=== PATIENT | male | born 1975 | race Two or more races ===

== ENCOUNTER 2018-05-05 22:01 | Emergency (ER) | payer MEDICAID ==
[~2018-05-05] VITALS: Ht 172.7 cm; Wt 125.2 kg
[2018-05-05 22:11] VITALS: BP 129/78
--- NOTE | 2018-05-05 22:40 | NUR ---
BIB FAMILY COMPLAINING OF SOB SINCE "9AM" TODAY TAKING NEWLY PRESCRIBED ANTIDEPRESSANT. PT AA/OX4 ANXIOUS. SPEAKING FULL SENTENCES. NO S/S OF SOB. LUNGS SOUNDS CLEAR ALLF FEILDS. SKIN PINK, WARM, DRY. SEMI FOWLERS POSITION WELL TOLERATED. AMBULATED TO BED WITH STABLE GAIT. NO COMPLAINTS OF PAIN. NO N/V. VSS. NAD. WILL CONTINUE TO MONITOR.
--- NOTE | 2018-05-05 23:06 | NUR ---
Patient discharged to home in stable condition. Written and verbal after care instructions given. Patient verbalizes understanding of instruction. AMBULATED WITH STEADY GAIT. JON. VSS.
== END 2018-05-05 23:08 | disposition home or self-care (01) ==
LOC: ER 22:06
DX: F41.9 Anxiety disorder, unspecified (principal); T43.215A Adverse effect of selective serotonin and norepinephrine reuptake inhibitors, initial encounter; I10 Essential (primary) hypertension; E66.9 Obesity, unspecified; Y92.89 Other specified places as the place of occurrence of the external cause
CPT/HCPCS: 99281; A4606; Z7610; Z7502

== ENCOUNTER 2018-05-08 19:30 | Emergency (ER) | payer MEDICAID ==
[~2018-05-08] VITALS: Ht 165.1 cm; Wt 124.3 kg
[2018-05-08 19:48] VITALS: BP 152/89
== END 2018-05-08 20:15 | disposition home or self-care (01) ==
LOC: ER 19:31
DX: R51 Headache (principal); I10 Essential (primary) hypertension; Z76.0 Encounter for issue of repeat prescription
CPT/HCPCS: 99283; A4606; Z7610

== ENCOUNTER 2018-07-03 18:10 | Emergency (ER) | payer MEDICAID ==
[~2018-07-03] VITALS: Ht 170.2 cm; Wt 119.7 kg
--- NOTE | 2018-07-03 19:04 | NUR ---
PATIENT AMBULATORY TO ER BED 1. BIBSELF C/O EPIGASTRIC PAIN W/ N/V SINCE 1000 HOURS. PT PLACED IN GOWN AND ON ACCELERATOR OPERATOR. VSS/RESP EVEN UNLABORED/NAD NOTED/SKIN WARM AND DRY/AFEBRILE/AOX4. AWAITNG MD CONWAY.
[2018-07-03] MEDS ORDERED: ONDANSETRON HCL/PF 4 MG/2 ML VIAL ONE (19:50)
--- NOTE | 2018-07-03 19:55 | NUR ---
18G IV TO R AC X 1 ATTEMPT USING ASEPTIC TECH, BLOOD HANDED OVER TO THE LAB AT BEDSIDE. IV FLUSHES EASILY WITH NS, NO S/S INFILTRATION NOTED AT THIS TIME.
[2018-07-03] MEDS: ONDANSETRON HCL/PF 4 MG/2 ML VIAL IVP ONE (20:00)
[2018-07-03 20:01] LABS: BASOPHILS # (AUTO) 0.1 /CMM (0.0-0.2); BASOPHILS % (AUTO) 0.7 % (0.0-2.0); EOSINOPHILS % (AUTO) 2.9 % (0.0-6.0); HEMATOCRIT 45 % (39-51); HEMOGLOBIN 14.9 g/dL (13.5-17.5); LYMPHOCYTES # (AUTO) 2.1 /CMM (0.8-4.8); LYMPHOCYTES % (AUTO) 22.4 % (20.0-44.0); MEAN CORPUSCULAR HGB CONC 33 g/dl (31.0-36.0); MEAN CORPUSCULAR VOLUME 86 fL (80-96); MONOCYTES # (AUTO) 0.6 /CMM (0.1-1.30); MONOCYTES % (AUTO) 6.9 % (2.0-12.0); NEUTROPHILS # (AUTO) 6.2 /CMM (1.8-8.9); NEUTROPHILS % (AUTO) 67.1 % (43.0-81.0); PLATELET COUNT (AUTO) 313 /CMM (150-450); RED BLOOD CELL COUNT(AUTO) 5.24 MIL/uL (4.5-6.0); WHITE BLOOD COUNT (AUTO) 9.3 K/uL (4.3-11.0)
[2018-07-03] MEDS: IV NS 0.9% 1,000 ML BAG IV ONE (20:01)
[2018-07-03 20:10] LABS: CALCIUM, SERUM 8.7 mg/dL (8.5-10.1); CREATININE 0.8 mg/dL (0.6-1.3); POTASSIUM 3.7 mmol/L (3.5-5.1)
[2018-07-03 20:15] LABS: ALBUMIN 3.5 g/dL (3.4-5.0); BILIRUBIN,DIRECT 0.2 mg/dL (0.0-0.2); BILIRUBIN,TOTAL 0.7 mg/dL (0.2-1.0); TOTAL PROTEIN, SERUM 7.3 g/dL (6.4-8.2)
[2018-07-03] MEDS ORDERED: LORAZEPAM 1 MG TABLET ONE (20:41)
[2018-07-03] MEDS: LORAZEPAM 1 MG TABLET PO ONE (20:45)
--- NOTE | 2018-07-03 21:50 | NUR ---
IV removed. Catheter intact and site benign. Pressure and 4x4 applied to site. No bleeding noted. Patient discharged to home in stable condition. Written and verbal after care instructions given. Patient verbalizes understanding of instruction. Patient ambulatory with a steady gait.
[2018-07-03 21:52] VITALS: BP 124/81
== END 2018-07-03 21:53 | disposition home or self-care (01) ==
LOC: ER 18:12
DX: R10.13 Epigastric pain (principal); R11.2 Nausea with vomiting, unspecified; F41.9 Anxiety disorder, unspecified
CPT/HCPCS: 36415; 80048-TC; 80076-TC; 83690-TC; 85025-TC; A4606; J2405; J7030; Z7610

== ENCOUNTER 2018-09-10 13:05 | Emergency (ER) | payer MEDICAID ==
[~2018-09-10] VITALS: Ht 160 cm; Wt 117.9 kg
--- NOTE | 2018-09-10 13:08 | NUR ---
BIB SELF 43 YEAR OLD MALE C/O EPIGASTRIC PAIN W/ N/VSINCE YESTERDAY WORST X 30 MINS. ALERT AND ORIENTED X4, BREATHING EVEN AND UNLABORED WITH NO DISTRESS NOTED. SKIN WARM TO TOUCH AND INTACT. AWAITING TO BE SEEN BY
[2018-09-10 13:59] LABS: BASOPHILS % (AUTO) 0.4 % (0.0-2.0); HEMATOCRIT 44 % (39-51); HEMOGLOBIN 14.8 g/dL (13.5-17.5); LYMPHOCYTES # (AUTO) 2.7 /CMM (0.8-4.8); LYMPHOCYTES % (AUTO) 27.5 % (20.0-44.0); MEAN CORPUSCULAR HGB CONC 34 g/dl (31.0-36.0); MEAN CORPUSCULAR VOLUME 88 fL (80-96); MONOCYTES # (AUTO) 0.8 /CMM (0.1-1.30); MONOCYTES % (AUTO) 7.6 % (2.0-12.0); NEUTROPHILS # (AUTO) 6.2 /CMM (1.8-8.9); NEUTROPHILS % (AUTO) 62.5 % (43.0-81.0); PLATELET COUNT (AUTO) 316 /CMM (150-450); RED BLOOD CELL COUNT(AUTO) 5.01 MIL/uL (4.5-6.0); WHITE BLOOD COUNT (AUTO) 9.9 K/uL (4.3-11.0)
[2018-09-10] MEDS ORDERED: ONDANSETRON HCL/PF 4 MG/2 ML VIAL ONE (13:59)
[2018-09-10] MEDS ORDERED: FAMOTIDINE/PF INJ 20 MG/2 ML VIAL IV ONE ×2 (13:59→14:00)
[2018-09-10] MEDS ORDERED: HYDROMORPHONE INJ 2 MG/ML DISP.SYRIN ONE (13:59)
[2018-09-10] MEDS ORDERED: PANTOPRAZOLE 40 MG VIAL ONE (13:59)
[2018-09-10] MEDS ORDERED: HYDROMORPHONE INJ 2 MG/ML DISP.SYRIN IV ONE (14:00)
[2018-09-10] MEDS ORDERED: IV NS 0.9% 1,000 ML BAG IV ONE (14:00)
[2018-09-10] MEDS ORDERED: PANTOPRAZOLE 40 MG VIAL IV ONE (14:00)
[2018-09-10] MEDS ORDERED: ONDANSETRON HCL/PF 4 MG/2 ML VIAL IVP ONE (14:00)
[2018-09-10 14:10] LABS: CALCIUM, SERUM 8.6 mg/dL (8.5-10.1); CREATININE 0.9 mg/dL (0.6-1.3); POTASSIUM 3.6 mmol/L (3.5-5.1)
[2018-09-10 14:16] LABS: ALBUMIN 3.4 g/dL (3.4-5.0); BILIRUBIN,DIRECT 0.4 mg/dL (0.0-0.2); TOTAL PROTEIN, SERUM 7.3 g/dL (6.4-8.2)
--- NOTE | 2018-09-10 15:57 | NUR ---
Patient discharged to home in stable condition. Written and verbal after care instructions given. Patient verbalizes understanding of instruction. IV removed. Catheter intact and site benign. Pressure and 4x4 applied to site. No bleeding noted.
[2018-09-10 15:59] VITALS: BP 118/88
== END 2018-09-10 16:00 | disposition home or self-care (01) ==
LOC: ER 13:07
DX: K29.70 Gastritis, unspecified, without bleeding (principal); F41.9 Anxiety disorder, unspecified
CPT/HCPCS: 36415; 80048; 80076; 83690; 85025; 85730; 96361; 96374; 96375; 99283; A4606; C9113; J1170; J2405; J3490; J7030; Z7610

== ENCOUNTER 2018-10-13 12:00 | Emergency (ER) | payer MEDICAID ==
--- NOTE | 2018-10-13 12:27 | NUR ---
FIRST CALL, PATIENT IS NOT IN THE WAITING ROOM.
--- NOTE | 2018-10-13 12:40 | NUR ---
2ND CALL, PATIENT IS NOT IN THE WAITING ROOM
== END 2018-10-13 12:44 | disposition home or self-care (01) ==
LOC: ER 12:06
DX: Z53.21 Procedure and treatment not carried out due to patient leaving prior to being seen by health care provider (principal)

== ENCOUNTER 2018-10-30 21:09 | Emergency (ER) | payer MEDICAID ==
[~2018-10-30] VITALS: Ht 170.2 cm; Wt 112.0 kg
[2018-10-30 21:09] VITALS: BP 123/82
--- NOTE | 2018-10-30 22:00 | NUR ---
URINE SAMPLE SENT TO LAB.
[2018-10-30] MEDS ORDERED: LIDOCAINE VISCOUS 2% UD 15 ML UDC MM ONE (22:30)
[2018-10-30] MEDS ORDERED: MAG HYDROX/AL HYDROX/SIMETH 30 ML UDC PO ONE (22:30)
[2018-10-30] MEDS ORDERED: LIDOCAINE VISCOUS 2% UD 15 ML UDC ONE (22:38)
[2018-10-30] MEDS ORDERED: MAG HYDROX/AL HYDROX/SIMETH 30 ML UDC ONE (22:38)
== END 2018-10-30 23:16 | disposition home or self-care (01) ==
LOC: ER 21:14
DX: K21.9 Gastro-esophageal reflux disease without esophagitis (principal); F41.9 Anxiety disorder, unspecified
CPT/HCPCS: 99282; A4606

== ENCOUNTER 2018-11-03 14:03 | Emergency (ER) | payer MEDICAID ==
[~2018-11-03] VITALS: Ht 165.1 cm; Wt 107.5 kg
--- NOTE | 2018-11-03 14:03 | NUR ---
BIB SELF FOR C/O DIZZINESS, +HORIZONTAL NYSTAGMUS, TO ER BED 3, HOOKED TO MONITOR, AWAITING MD CONWAY
--- NOTE | 2018-11-03 14:44 | NUR ---
CONNIE ZHOU AT BEDSIDE.
[2018-11-03] MEDS ORDERED: IV NS 0.9% 1,000 ML BAG IV ONE (15:00)
[2018-11-03] MEDS ORDERED: LORAZEPAM INJ 2 MG/ML VIAL IV ONE (15:00)
[2018-11-03] MEDS ORDERED: KETOROLAC TROMETHAMINE INJ 30 MG/ML VIAL IV ONE (15:00)
[2018-11-03] MEDS ORDERED: KETOROLAC TROMETHAMINE INJ 30 MG/ML VIAL ONE (15:14)
[2018-11-03] MEDS ORDERED: LORAZEPAM INJ 2 MG/ML VIAL ONE (15:15)
--- NOTE | 2018-11-03 16:04 | NUR ---
IV removed. Catheter intact and site benign. Pressure and 4x4 applied to site. No bleeding noted.Patient discharged to home in stable condition. Written and verbal after care instructions given. Patient verbalizes understanding of instruction.
[2018-11-03 17:07] VITALS: BP 122/78
== END 2018-11-03 16:05 | disposition home or self-care (01) ==
LOC: ER 14:09
DX: G43.909 Migraine, unspecified, not intractable, without status migrainosus (principal); R42 Dizziness and giddiness; F41.9 Anxiety disorder, unspecified
CPT/HCPCS: 96361; 96374; 96375; 99283; A4606; J1885; J2060; J7030

== ENCOUNTER 2018-11-07 00:17 | Emergency (ER) | payer MEDICAID ==
[~2018-11-07] VITALS: Ht 170.2 cm; Wt 112.5 kg
[2018-11-07 00:29] VITALS: BP 114/69
[2018-11-07] MEDS ORDERED: ONDANSETRON 4 MG TAB.RAPDIS ONE (00:57)
[2018-11-07] MEDS ORDERED: KETOROLAC TROMETHAMINE INJ 60 MG/2 ML VIAL IM ONE ×2 (00:59→01:00)
[2018-11-07] MEDS ORDERED: ONDANSETRON 4 MG TAB.RAPDIS PO ONE (01:00)
== END 2018-11-07 02:09 | disposition home or self-care (01) ==
LOC: ER 00:22
DX: F41.9 Anxiety disorder, unspecified (principal); G43.909 Migraine, unspecified, not intractable, without status migrainosus; E86.0 Dehydration; Z90.49 Acquired absence of other specified parts of digestive tract; Z98.890 Other specified postprocedural states
CPT/HCPCS: J1885; Q0162

== ENCOUNTER 2021-09-17 11:43 | Inpatient (IN) | payer MEDICAID ==
[~2021-09-17] VITALS: Ht 162.6 cm; Wt 114.8 kg
--- NOTE | 2021-09-17 12:00 | NUR ---
SALINE LOCK ESTABLISHED, BLOOD DRAWN AND SENT TO LAB
[2021-09-17] MEDS ORDERED: IV NS 0.9% 1,000 ML BAG IV ONE (12:30)
[2021-09-17 12:38] LABS: BASOPHILS % (AUTO) 0.2 % (0.0-2.0); EOSINOPHILS % (AUTO) 1.6 % (0.0-6.0); HEMATOCRIT 42 % (39-51); HEMOGLOBIN 14.5 g/dL (13.5-17.5); LYMPHOCYTES # (AUTO) 1.6 K/uL (0.8-4.8); LYMPHOCYTES % (AUTO) 41.1 % (20.0-44.0); MEAN CORPUSCULAR HGB CONC 34 g/dl (31.0-36.0); MEAN CORPUSCULAR VOLUME 87 fL (80-96); MONOCYTES # (AUTO) 0.5 K/uL (0.1-1.30); MONOCYTES % (AUTO) 12.1 % (2.0-12.0); NEUTROPHILS # (AUTO) 1.7 K/uL (1.8-8.9); PLATELET COUNT (AUTO) 242 K/uL (150-450); RED BLOOD CELL COUNT(AUTO) 4.86 MIL/uL (4.5-6.0); WHITE BLOOD COUNT (AUTO) 3.9 K/uL (4.3-11.0)
[2021-09-17] MEDS ORDERED: MECLIZINE HCL 25 MG TABLET ONE (12:46)
[2021-09-17] MEDS ORDERED: ONDANSETRON HCL/PF 4 MG/2 ML VIAL ONE (12:46)
--- NOTE | 2021-09-17 12:52 | NUR ---
COVID SWAB DONE AND SENT TO LAB
[2021-09-17 12:59] LABS: CALCIUM, SERUM 8.6 mg/dL (8.5-10.1); CARBON DIOXIDE 30 mmol/L (21-32); CHLORIDE 106 mmol/L (98-107); CREATININE 0.9 mg/dL (0.6-1.3); GLUCOSE 99 mg/dL (74-106); SODIUM SERUM 140 mmol/L (136-145); UREA NITROGEN, BLOOD 14 mg/dL (7-18)
[2021-09-17] MEDS ORDERED: ONDANSETRON HCL/PF - ER 4 MG/2 ML VIAL IV ONE (13:00)
[2021-09-17] MEDS ORDERED: MECLIZINE HCL 12.5 MG TABLET PO ONE (13:00)
[2021-09-17 13:15] LABS: ALANINE AMINOTRANSFERASE 63 U/L (12-78); ALBUMIN 3.1 g/dL (3.4-5.0); ALKALINE PHOSPHATASE 96 U/L (46-116); ASPARTATE AMINOTRANSFERASE 44 U/L (15-37); BILIRUBIN,DIRECT 0.2 mg/dL (0.0-0.2); BILIRUBIN,TOTAL 0.5 mg/dL (0.2-1.0)
[2021-09-17 13:16] LABS: LIPASE 73 U/L (73-393); TOTAL PROTEIN, SERUM 7.3 g/dL (6.4-8.2)
[2021-09-17] MEDS ORDERED: CT SWABBABLE VALVE TRANS SET 1 EA INFUS.SET MC ONE (13:29)
[2021-09-17] MEDS ORDERED: IV NS 0.9% 250 ML IV ONE (13:29)
[2021-09-17] MEDS ORDERED: IOHEXOL-350 100 ML VIAL IV ONE (13:29)
--- NOTE | 2021-09-17 14:17 | NUR ---
URINE COLLECTED AND SENT TO LAB
--- NOTE | 2021-09-17 15:10 | NUR ---
MOVE SHEET SUBMITTED AND CALLED FOR TELE BED.
[2021-09-17 15:14] LABS: BILIRUBIN,URINE NEGATIVE (NEGATIVE); COLOR,URINE YELLOW (YELLOW); LEUKOCYTE ESTERASE ,URINE NEGATIVE (NEGATIVE); NITRITE, URINE NEGATIVE (NEGATIVE); PROTEIN,URINE NEGATIVE (NEGATIVE); UGLUCOSE NEGATIVE (NEGATIVE)
[2021-09-17 15:27] LABS: BACTERIA,URINE None seen /HPF (None Seen); RBC,URINE 0-2 /HPF (0-2); SQUAMOUS EPITHELIAL CELL,UR None Seen /HPF (None Seen); WBC,URINE 0-2 /HPF (0-3)
[2021-09-17] MEDS ORDERED: ONDANSETRON HCL/PF 4 MG/2 ML VIAL IVP PRN (17:00)
[2021-09-17] MEDS ORDERED: ACETAMINOPHEN 325 MG TABLET PO PRN (17:00)
[2021-09-17] MEDS ORDERED: CEFTRIAXONE 1GM BAG (ER ONLY) 50 ML IV ONE (17:25)
[2021-09-17] MEDS: CEFTRIAXONE 1 G in IV D5W 50 ML IV SCH (17:32)
--- NOTE | 2021-09-17 18:07 | NUR ---
COVID PCR, FLU, AND RESP SYNCYTIAL SWABS DONE AND SENT
[2021-09-17 18:15] LABS: C-REACTIVE PROTEIN 1.6 mg/dL (0.0-0.9)
--- NOTE | 2021-09-17 19:49 | NUR ---
GAVE REPORT TO KATHERINE LINARES FOR GUILLE
[2021-09-17 20:00] VITALS: BP 127/74
--- NOTE | 2021-09-17 20:28 | NUR ---
PATIENT TRANSFERRED, NO ACUTE DISTRESS NOTED
--- NOTE | 2021-09-17 20:30 | NUR ---
RN NOTES RECEIVED PATIENT FROM ER, A/OX4, DENIES PAIN, ADMISSION INSTRUCTIONS WAS RENDERED, CALL LIGHT WITHIN REACH, SIDERIALSUPX2, WILL CONTINUE TO MONITOR
[2021-09-18] VITALS: BP 134/91
--- NOTE | 2021-09-18 06:36 | NUR ---
RN NOTES SLEEPING BUT AROUSABLE, NOT IN DISTRESS, DENIES PAIN, PT. NEEDS ATTENDED
--- NOTE | 2021-09-18 07:27 | NUR ---
RN OPENING NOTES Patient seen comfortably lying in bed, no apparent distress noted, respirations even and unlabored, no SOB, denies any pain or discomfort at this time, no grimacing. Call light left within reach, safety precautions in place, brakes locked, side rails up X 2, will monitor closely for any changes.
[2021-09-18 07:30] LABS: BASOPHILS % (AUTO) 0.2 % (0.0-2.0); HEMATOCRIT 43 % (39-51); HEMOGLOBIN 14.3 g/dL (13.5-17.5); LYMPHOCYTES # (AUTO) 1.7 K/uL (0.8-4.8); LYMPHOCYTES % (AUTO) 41.1 % (20.0-44.0); MEAN CORPUSCULAR HGB CONC 34 g/dl (31.0-36.0); MEAN CORPUSCULAR VOLUME 88 fL (80-96); MONOCYTES # (AUTO) 0.4 K/uL (0.1-1.30); MONOCYTES % (AUTO) 10.2 % (2.0-12.0); NEUTROPHILS % (AUTO) 46.5 % (43.0-81.0); PLATELET COUNT (AUTO) 256 K/uL (150-450); RED BLOOD CELL COUNT(AUTO) 4.84 MIL/uL (4.5-6.0); WHITE BLOOD COUNT (AUTO) 4.2 K/uL (4.3-11.0)
[2021-09-18 08:00] VITALS: BP 91/56
[2021-09-18 08:19] LABS: THYROID STIMULATING HORMONE 1.009 uIU/mL (0.358-3.74)
[2021-09-18 08:28] LABS: BILIRUBIN,TOTAL 0.7 mg/dL (0.2-1.0); CALCIUM, SERUM 8.5 mg/dL (8.5-10.1); CREATININE 0.9 mg/dL (0.6-1.3); PHOSPHORUS 3.3 mg/dL (2.5-4.9); POTASSIUM 4.1 mmol/L (3.5-5.1)
[2021-09-18 15:59] LABS: PROSTATE SPECIFIC ANTIGEN SCR 0.35 ng/mL (0.00-4.00)
[2021-09-18] MEDS: CEFTRIAXONE 1 G in IV D5W 50 ML IV SCH (16:56)
--- NOTE | 2021-09-18 19:13 | NUR ---
RN CLOSING NOTES Patient lying in bed, no SOB, respirations even and unlabored, no dizziness, no palpitations, no grimacing, remained afebrile during shift. No nausea, no vomiting, abdominal bowel sound present in all quadrant, no grimacing when abdomen palpated. All medications given per MD order, tolerating well. Kept clean and dry, call light left within reach, all needs anticipated, aspiration precautions observed at all times, kept head of bed elevated, safety precautions in place, brakes locked, side rails up X 2, will endorse to next shift for continuity of care.
[2021-09-18 20:00] VITALS: BP 103/63
[2021-09-19 06:49] LABS: BASOPHILS % (AUTO) 0.2 % (0.0-2.0); EOSINOPHILS % (AUTO) 2.3 % (0.0-6.0); HEMATOCRIT 43 % (39-51); HEMOGLOBIN 14.3 g/dL (13.5-17.5); LYMPHOCYTES # (AUTO) 1.6 K/uL (0.8-4.8); LYMPHOCYTES % (AUTO) 34.2 % (20.0-44.0); MEAN CORPUSCULAR HGB CONC 34 g/dl (31.0-36.0); MEAN CORPUSCULAR VOLUME 87 fL (80-96); MONOCYTES # (AUTO) 0.5 K/uL (0.1-1.30); MONOCYTES % (AUTO) 10.5 % (2.0-12.0); NEUTROPHILS # (AUTO) 2.5 K/uL (1.8-8.9); NEUTROPHILS % (AUTO) 52.8 % (43.0-81.0); PLATELET COUNT (AUTO) 277 K/uL (150-450); RED BLOOD CELL COUNT(AUTO) 4.87 MIL/uL (4.5-6.0); WHITE BLOOD COUNT (AUTO) 4.7 K/uL (4.3-11.0)
--- NOTE | 2021-09-19 07:19 | NUR ---
RN OPENING NOTES RECEIVED PATIENT ON BED ALERT AND ORIENTED WITH NO SIGNS OF DISTRESS. PATIENT ON ROOM AIR, WITH NO SIGNS OF DISTRESS. WITH EQUAL AND UNLABORED BREATHING SATURATING AT 99%. PATIENT WITH L AC G 18 ON SALINE LOCK. PATENT AND INTACT. NOT IN DISTRESS. WILL CONTINUE TO MONITOR PATIENT.
[2021-09-19 07:28] LABS: CREATININE 0.9 mg/dL (0.6-1.3); PHOSPHORUS 3.1 mg/dL (2.5-4.9); POTASSIUM 3.8 mmol/L (3.5-5.1)
[2021-09-19 08:00] VITALS: BP 128/80
[2021-09-19 08:06] LABS: IMMUNOGLOBULIN A, SERUM 353 mg/dL (90-386); IMMUNOGLOBULIN G, SERUM 1340 mg/dL (603-1613); IMMUNOGLOBULIN M, SERUM 46 mg/dL (20-172)
[2021-09-19 09:07] LABS: *ANA ANTI-CENTROMERE B AB <0.2 AI (0.0-0.9); *ANA ANTI-DNA(DS) AB, QN <1 IU/mL (0-9); *ANA ANTI-JO-1 <0.2 AI (0.0-0.9); *ANA ANTICHROMATIN ANTIBODY <0.2 AI (0.0-0.9); *ANA RNP ANTIBODIES 0.2 AI (0.0-0.9); *ANA SJOGREN'S ANTI-SS-A <0.2 AI (0.0-0.9); *ANA SJOGREN'S ANTI-SS-B <0.2 AI (0.0-0.9); *ANAANTI-SCLERODERMA-70 AB <0.2 AI (0.0-0.9); *ANASMITH AB <0.2 AI (0.0-0.9)
[2021-09-19] MEDS: CEFEPIME 2 GM in IV D5W 100 ML IV SCH ×2 (11:48→18:49)
[2021-09-19 14:07] LABS: *SPE ALPHA-1-GLOBULIN 0.2 g/dL (0.0-0.4); *SPE ALPHA-2-GLOBULIN 0.9 g/dL (0.4-1.0); *SPE BETA GLOBULIN 1.1 g/dL (0.7-1.3); *SPE M-SPIKE Not Observed g/dL (Not Observed)
--- NOTE | 2021-09-19 19:00 | NUR ---
RN CLOSING NOTES PATIENT ON BED ALERT AND ORIENTED WITH NO SIGNS OF DISTRESS. PATIENT ON ROOM AIR, WITH NO SIGNS OF DISTRESS. WITH EQUAL AND UNLABORED BREATHING SATURATING AT 99%. PATIENT WITH L AC G 18 ON SALINE LOCK. PATENT AND INTACT. NOT IN DISTRESS. SAFETY MEASURES ENSURED. CALL LIGHT WITHIN REACH AT ALL TIMES. BED LOCKED AND AT LOWEST POSITION. ENDORSED TO NEXT SHIFT FOR CONTINUITY OF CARE.
[2021-09-19 20:00] VITALS: BP 108/69
[2021-09-20] MEDS: CEFEPIME 2 GM in IV D5W 100 ML IV SCH ×3 (03:48→18:06)
[2021-09-20 06:31] LABS: BASOPHILS % (AUTO) 0.2 % (0.0-2.0); EOSINOPHILS % (AUTO) 2.4 % (0.0-6.0); HEMATOCRIT 42 % (39-51); HEMOGLOBIN 14.4 g/dL (13.5-17.5); LYMPHOCYTES # (AUTO) 1.7 K/uL (0.8-4.8); LYMPHOCYTES % (AUTO) 27.5 % (20.0-44.0); MEAN CORPUSCULAR HGB CONC 34 g/dl (31.0-36.0); MEAN CORPUSCULAR VOLUME 87 fL (80-96); MONOCYTES # (AUTO) 0.7 K/uL (0.1-1.30); MONOCYTES % (AUTO) 11.3 % (2.0-12.0); NEUTROPHILS # (AUTO) 3.7 K/uL (1.8-8.9); NEUTROPHILS % (AUTO) 58.6 % (43.0-81.0); PLATELET COUNT (AUTO) 272 K/uL (150-450); RED BLOOD CELL COUNT(AUTO) 4.85 MIL/uL (4.5-6.0); WHITE BLOOD COUNT (AUTO) 6.3 K/uL (4.3-11.0)
[2021-09-20 07:20] LABS: CALCIUM, SERUM 8.5 mg/dL (8.5-10.1); MAGNESIUM 2.2 mg/dL (1.8-2.4); PHOSPHORUS 3.2 mg/dL (2.5-4.9); POTASSIUM 3.9 mmol/L (3.5-5.1)
[2021-09-20 08:00] VITALS: BP 95/62
[2021-09-20 16:00] VITALS: BP 93/55
--- NOTE | 2021-09-20 18:10 | NUR ---
MS RN NOTE PATIENT REPORTED TO HAVE A RED PAPULE ON THE LEFT LOWER ABDOMEN. PHOTO TAKEN. WOUND CONSULT ORDERED.
--- NOTE | 2021-09-20 18:10 | NUR ---
MS MURPHY NOTE PATIENT REPORTED TO HAVE A RED PAPULE ON THE LEFT LOWER ABDOMEN. PHOTO TAKEN. WOUND CONSULT ORDERED. Addendum: 09/20/21 at 2 by DAGOBERTO OROURKE RN ERROR
--- NOTE | 2021-09-20 19:30 | NUR ---
MS RN CLOSING NOTES PATIENT ON BED AWAKE AND A/O X4. ON ROOM AIR TOLERATING WELL. NO SOB NOTED. NOT IN DISTRESS. WITH NO COMPLAINTS OF PAIN OR DISCOMFORT AT THIS TIME. WITH IV ACCESS AT LEFT AC G18 SALINE LOCKED, PATENT AND INTACT. DUE MEDS GIVEN. SAFETY MEASURES IN PLACED. CALL LIGHT WITHIN REACH. BED ON LOWEST LOCKED POSITION, SIDE RAILS UP X2. WILL ENDORSE TO NEXT SHIFT FOR GUILLE.
--- NOTE | 2021-09-20 19:33 | NUR ---
MS KATHERINE CLOSING NOTES PATIENT ON BED AWAKE AND A/O X4. ON ROOM AIR TOLERATING WELL. NO SOB NOTED. NOT IN DISTRESS. WITH NO COMPLAINTS OF PAIN OR DISCOMFORT AT THIS TIME. WITH IV ACCESS AT LEFT AC G18 SALINE LOCKED, PATENT AND INTACT. DUE MEDS GIVEN. SAFETY MEASURES IN PLACED. CALL LIGHT WITHIN REACH. BED ON LOWEST LOCKED POSITION, SIDE RAILS UP X2. WILL ENDORSE TO NEXT SHIFT FOR GUILLE. Addendum: 09/20/21 at 1942 by DAGOBERTO OROURKE RN ERROR
--- NOTE | 2021-09-20 19:35 | NUR ---
RN opening notes Received Pt from morning nurse. Pt is sitting in bed comfortably. Pt is alert and orientedX4. Respiration on room air. No SOB. No S/S of distress noted. IV site at LAc# 18 is clean, intact, flushes well and SL. Pt is able to ambulates with a steady gait. Safety precautions is maintained. Bed at low position, brakes locked, side rails upX2, hob elevated and call light is within reach. Will continue to monitor.
[2021-09-20 20:00] VITALS: BP 94/59
[2021-09-20 22:00] VITALS: BP 99/70
[2021-09-21] MEDS: CEFEPIME 2 GM in IV D5W 100 ML IV SCH ×2 (02:02→11:12)
[2021-09-21 04:00] VITALS: BP 100/66
--- NOTE | 2021-09-21 06:45 | NUR ---
RN closing notes Pt is resting bed comfortable. Pt is alert and orientedX4. Respiration is normal in room air. No SOB. No S/S of distress noted. IV site at LAc# 18 is clean, intact, flushes well and SL. VS is stable. Kept Pt clean, dry and comfortable. Routine meds were given as ordered. Safety precautions is maintained. Bed at low position, brakes locked, side rails upX2, hob elevated and call light is within reach. Will endorse to am nurse for GUILLE.
--- NOTE | 2021-09-21 07:14 | NUR ---
MS RN OPENING NOTES RECEIVED PATIENT ON BED AWAKE AND A/O X4. ON ROOM AIR TOLERATING WELL. NO SOB NOTED. NOT IN DISTRESS. WITH NO COMPLAINTS OF PAIN OR DISCOMFORT AT THIS TIME. WITH IV ACCESS AT LEFT AC G18 SALINE LOCKED, PATENT AND INTACT. SAFETY MEASURES IN PLACED. CALL LIGHT WITHIN REACH. BED ON LOWEST LOCKED POSITION, SIDE RAILS UP X2. WILL CONTINUE TO MONITOR ACCORDINGLY.
--- NOTE | 2021-09-21 14:15 | NUR ---
RN NOTES PATIENT'S IV NOTED TO BE LEAKING, REINSERTED AN IV ACCESS ON PATIENT'S RIGHT AC G#20. PATENT AND FLUSHES WELL.
[2021-09-21] MEDS ORDERED: VANCOMYCIN 1.25 GM in IV D5W 250 ML IV SCH (17:00)
[2021-09-21] MEDS ORDERED: LEVO500T90 PO (17:53)
[2021-09-21] MEDS ORDERED: DOXY100C2 PO (17:53)
--- NOTE | 2021-09-21 18:40 | NUR ---
BUILDING PRINCIPAL NOTES DISCHARGED PATIENT IN STABLE CONDITION. VITAL SIGNS WITHIN NORMAL LIMITS. DISCHARGE INSTRUCTIONS/MEDICATIONS DISCUSSED WITH PATIENT. FOLLOW UP INFORMATION PROVIDED. PATIENT VERBALIZED UNDERSTANDING. IV ACCESS REMOVED, COVERED WITH GAUZE, NO BLEEDING NOTED. BELONGINGS ACCOUNTED AND SIGNED FOR. WALKED TO LOBBY SAFELY. LEFT UNIT IN STABLE CONDITION. MD AWARE OF DISCHARGE.
== END 2021-09-21 18:40 | disposition home or self-care (01) | DRG 137 ==
LOC: ER 11:46 → TRANSITION 17:55 → TELE2 19:54 → MEDSG2 09-18 07:00
PROVIDERS: ADMIT Registered Nurse; ATTEND Registered Nurse
DX: U07.1 COVID-19 (principal); L03.311 Cellulitis of abdominal wall; D72.819 Decreased white blood cell count, unspecified; Z90.49 Acquired absence of other specified parts of digestive tract; E66.9 Obesity, unspecified; Z68.41 Body mass index [BMI] 40.0-44.9, adult; F41.9 Anxiety disorder, unspecified; K29.70 Gastritis, unspecified, without bleeding; Z87.19 Personal history of other diseases of the digestive system; R91.1 Solitary pulmonary nodule; K57.90 Diverticulosis of intestine, part unspecified, without perforation or abscess without bleeding; K59.00 Constipation, unspecified; M51.37 Other intervertebral disc degeneration, lumbosacral region
CPT/HCPCS: 36415; 70450-TC; 71045-TC; 80048-TC; 80053-TC; 80076-TC; 81001; 82164; 82378; 82550-TC; 82784; 83615-TC; 83690-TC; 83735-TC; 84100-TC; 84153-TC; 84154-TC; 84155; 84165; 84443-TC; 84484-TC; 85025-TC; 85378-TC; 86140-TC; 86225; 86235; 86334; 86431-TC; 86480; 86706; 86803; 87040-TC; 87081-TC; 87086-TC; 87340; 87806; 87899; 93307-TC; 93970-TC; C9803; G0378; J0692; J0696; J2405; J3370; J7030; J7050; J7060; J8597; Q9967; U0003

== ENCOUNTER 2022-01-18 20:19 | Emergency (ER) | payer MEDICAID ==
[~2022-01-18] VITALS: Ht 167.6 cm; Wt 86.2 kg
[~2022-01-18 20:19] MED LIST: DOXY100C2 PO; LEVO500T90 PO
--- NOTE | 2022-01-18 20:40 | NUR ---
BIBSELF C/O CONDON X 1 HR WILL DRIVING NUMB FEELING TO LEFT ARM. PT AWAKE AND ALERT X4 BREATHING EVEN AND UNLABORED. NO NEURO DEFECITS ON ASSESSMENT. HX OF MIGRAINES. CHANGED INTO GOWN AND PLACED ON MONITOR. MD AT BEDSIDE FOR EVAL.
--- NOTE | 2022-01-18 20:41 | NUR ---
20G ESTABLISHED AT [facility]. PATENT AND INTACT.
[2022-01-18] MEDS ORDERED: METOCLOPRAMIDE HCL 10 MG/2 ML VIAL ONE (20:51)
[2022-01-18] MEDS ORDERED: SUMATRIPTAN SUCCINATE 6 MG/0.5 ML VIAL SQ ONE ×2 (20:51→21:00)
[2022-01-18] MEDS ORDERED: KETOROLAC TROMETHAMINE INJ 30 MG/ML VIAL ONE (20:51)
[2022-01-18] MEDS ORDERED: IV NS 0.9% 1,000 ML BAG IV ONE (21:00)
[2022-01-18] MEDS ORDERED: METOCLOPRAMIDE HCL 10 MG/2 ML VIAL IV ONE (21:00)
[2022-01-18] MEDS ORDERED: KETOROLAC TROMETHAMINE INJ 30 MG/ML VIAL IV ONE (21:00)
--- NOTE | 2022-01-18 21:04 | NUR ---
PT TRANSPORTED TO CT VIA [facility]
[2022-01-18] MEDS ORDERED: IBUP-1957 PO (22:11)
[2022-01-18] MEDS ORDERED: SUMA100T PO (22:11)
[2022-01-18] MEDS ORDERED: METO-295 PO (22:11)
--- NOTE | 2022-01-18 22:42 | NUR ---
Patient discharged to home in stable condition. Written and verbal after care instructions given. Patient verbalizes understanding of instruction. IV line removed and PT ambulatory with steady gait.
[2022-01-18 22:43] VITALS: BP 121/83
== END 2022-01-18 22:44 | disposition home or self-care (01) ==
LOC: ER 20:22
DX: R51.9 Headache, unspecified (principal); Z87.19 Personal history of other diseases of the digestive system; Z79.899 Other long term (current) drug therapy
CPT/HCPCS: 70450; 96361; 96372; 96374; 96375; 99284; J1885; J2765; J3030; J7030